=== PATIENT | female | born 1990 | race Caucasian/White ===

== ENCOUNTER 2022-07-05 03:06 | Inpatient (IN) | payer OTHER ==
[2022-07-05 06:10] LABS: HEMATOCRIT 36.8 % (36.0-47.0); HEMOGLOBIN 12.4 g/dl (12.0-15.5); MEAN CORPUSCULAR HEMOGLOBIN 29.7 pg (27.0-33.0); MEAN CORPUSCULAR HGB CONC 33.7 g/dl (32.0-36.5); PLATELET COUNT, AUTOMATED 217 10^3/uL (150-450); RED BLOOD COUNT 4.18 10^6/uL (4.00-5.40)
[2022-07-05 06:42] LABS: RSV AMPLIFICATION NEGATIVE (NEGATIVE)
[2022-07-05 06:44] LABS: AMPHETAMINES LEVEL URINE NEGATIVE (NEGATIVE); BARBITURATES URINE NEGATIVE (NEGATIVE); BENZODIAZEPINES URINE NEGATIVE (NEGATIVE); CANNABINOIDS URINE NEGATIVE (NEGATIVE); COCAINE METABOLITE URINE NEGATIVE (NEGATIVE); METHADONE URINE NEGATIVE (NEGATIVE); OPIATES URINE NEGATIVE (NEGATIVE); PHENCYCLIDINE URINE NEGATIVE (NEGATIVE)
[2022-07-05 06:53] LABS: ACETAMINOPHEN LEVEL < 2.0 UG/ML (10.0-30.0); ALBUMIN 4.1 GM/DL (3.2-5.2); ALT/SGPT 14 U/L (12-78); BILIRUBIN,DIRECT 0.2 MG/DL (0.0-0.2); BILIRUBIN,TOTAL 0.5 MG/DL (0.2-1.0); BLOOD UREA NITROGEN 9 MG/DL (7-18); CARBON DIOXIDE LEVEL 24 MEQ/L (21-32); CHLORIDE LEVEL 108 MEQ/L (98-107); CREATININE FOR GFR 0.75 MG/DL (0.55-1.30); ETHYL ALCOHOL (ETHANOL) < 0.003 % (0.000-0.010); GLOMERULAR FILTRATION RATE > 60.0 (>60); GLUCOSE, FASTING 104 MG/DL (70-100); POTASSIUM SERUM 3.7 MEQ/L (3.5-5.1); SALICYLATE LEVEL < 1.7 MG/DL (5.0-30.0); SODIUM LEVEL 140 MEQ/L (136-145); TOTAL PROTEIN 7.9 GM/DL (6.4-8.2)
[2022-07-05] MEDS ORDERED: CETI-24 PO (14:18)
[2022-07-05] MEDS ORDERED: C-251TAB PO (14:18)
[2022-07-05] MEDS ORDERED: D 1010004 PO (14:18)
[2022-07-05] MEDS ORDERED: HOME MED LIST COMPLETE! XX SCH (14:20)
[2022-07-06] MEDS ORDERED: ACETAMINOPHEN TAB 650MG DOSE (2X325MG) PO ONE (00:25)
[2022-07-06] MEDS ORDERED: IBUPROFEN 400MG TAB PO ONE (08:15)
[2022-07-06] MEDS ORDERED: IBUPROFEN 600MG TAB PO ONE (21:20)
[2022-07-06] MEDS ORDERED: diphenhydrAMINE 50MG CAP PO ONE (21:20)
[2022-07-07 07:17] LABS: HCG, SERUM QUALITATIVE NEGATIVE (NEGATIVE)
[2022-07-07] MEDS ORDERED: IBUPROFEN 400MG TAB PO ONE (13:35)
[2022-07-07] MEDS ORDERED: IBUPROFEN 400MG TAB PO PRN (15:40)
[2022-07-07] MEDS ORDERED: MAALOX 30 ML SUSP *UDC PO PRN (15:40)
[2022-07-07] MEDS ORDERED: traZODone 50 MG TAB PO PRN (15:40)
[2022-07-07] MEDS ORDERED: MOM 30ML SUSPENSION UDC PO PRN (15:40)
[2022-07-07 17:22] VITALS: BP 108/62
[2022-07-08 06:53] VITALS: BP 104/58
[2022-07-08] MEDS: ESCITALOPRAM OXALATE 10 MG TAB (LEXAPRO) PO SCH (12:48)
[2022-07-08 18:07] VITALS: BP 109/64
[2022-07-08] MEDS: hydrOXYzine 50 MG TAB PO PRN (20:55)
[2022-07-09 06:54] VITALS: BP 99/56
[2022-07-09] MEDS: ESCITALOPRAM OXALATE 10 MG TAB (LEXAPRO) PO SCH (08:23)
[2022-07-09 18:10] VITALS: BP 120/65
[2022-07-09] MEDS: hydrOXYzine 50 MG TAB PO PRN (20:29)
[2022-07-10 06:39] VITALS: BP 106/69
[2022-07-10] MEDS: ESCITALOPRAM OXALATE 10 MG TAB (LEXAPRO) PO SCH (08:01)
[2022-07-10 18:06] VITALS: BP 110/74
[2022-07-10] MEDS: hydrOXYzine 50 MG TAB PO PRN (22:54)
[2022-07-11 06:38] VITALS: BP 110/67
[2022-07-11] MEDS: ESCITALOPRAM OXALATE 10 MG TAB (LEXAPRO) PO SCH (08:58)
[2022-07-11] MEDS ORDERED: HYDR50TA70 PO (11:16)
[2022-07-11] MEDS ORDERED: LEXA1TAB PO (11:16)
== END 2022-07-11 12:32 | disposition home or self-care (01) | DRG 885 ==
LOC: M ED 03:06 → M ED INP 07-07 15:38 → M PSY 07-07 16:46
PROVIDERS: ADMIT Psychiatry & Neurology Psychiatry; ATTEND Psychiatry & Neurology Psychiatry
DX: F33.0 Major depressive disorder, recurrent, mild (principal); F41.1 Generalized anxiety disorder; F43.29 Adjustment disorder with other symptoms; E03.9 Hypothyroidism, unspecified; Z63.8 Other specified problems related to primary support group; Z91.52 Personal history of nonsuicidal self-harm; Z88.0 Allergy status to penicillin; Z88.1 Allergy status to other antibiotic agents; T14.91XA Suicide attempt, initial encounter; S11.91XA Laceration without foreign body of unspecified part of neck, initial encounter; W26.0XXA Contact with knife, initial encounter; Y92.009 Unspecified place in unspecified non-institutional (private) residence as the place of occurrence of the external cause